=== PATIENT | male | born 1950 | race Caucasian/White ===

== ENCOUNTER 2017-11-08 19:16 | Emergency (ER) | payer MEDICARE, MEDICAID ==
[~2017-11-08] VITALS: Ht 198.1 cm; Wt 129.5 kg
[~2017-11-08 19:16] MED LIST: ALBUTEROL SULFAT3 M3 IH; ASPIRIN 32325 MG/TAB PO; CELEBREX 200MG200 MG PO; CIPRO 500MG TA500 MG PO; ELAVIL150 MG PO; ELAVIL50 MG PO; NORCO 325 MG-101 TAB PO; NORCO 325 MG-7.1 TAB PO; PROAIR HFA0.09 MG/AC IH
[2017-11-08 19:50] VITALS: BP 128/77; TEMP 99.1
[2017-11-08 20:02] LABS: BASO # 0.1 (0.0-0.2); BASO % 0.5 % (0.0-2.0); EOS # 0.3 (0.0-0.7); GRAN # 7.9 (1.4-6.5); GRAN % 69.7 % (42.2-75.2); HEMATOCRIT 40.4 % (42.0-52.0); HEMOGLOBIN 13.5 g/dl (13.5-18.0); LYMPH # 2.4 (1.2-3.4); LYMPH % 21.4 % (20.0-51.0); MEAN CELL VOLUME 91 fl (80.0-100.0); MEAN CORPUSCULAR HEMOGLOBIN 31 pg (27.0-31.0); MEAN CORPUSCULAR HGB CONC 33 g/dl (33.0-37.0); MEAN PLATELET VOLUME 8.6 fl (7.4-10.4); MONO # 0.6 (0.1-0.6); MONO % 5.2 % (1.7-9.3); PLATELET COUNT 237 K/mm3 (130-400); RED BLOOD COUNT 4.43 M/mm3 (4.20-5.60)
[2017-11-08 20:09] LABS: COLLECTION METHOD CLEAN CATCH
[2017-11-08 20:18] LABS: MUCOUS Present /lpf; PH 5 (5-8); URINE APPEARANCE Hazy; URINE BACTERIA None Seen /hpf; URINE BILIRUBIN Negative (NEGATIVE); URINE BLOOD Negative (NEGATIVE); URINE COLOR Amber; URINE GLUCOSE Negative (NEGATIVE); URINE KETONE Trace (NEGATIVE); URINE LEUKOCYTE ESTERASE 1+ (NEGATIVE); URINE NITRATE Negative (NEGATIVE); URINE PROTEIN(semi-quant) Negative (NEGATIVE); URINE UROBILINOGEN >=4.0 mg/dL (NEGATIVE)
[2017-11-08 20:26] LABS: ALANINE AMINOTRANSFERASE 25 U/L (21-72); ALBUMIN 3.7 gm/dL (3.5-5.0); ALKALINE PHOSPHATASE 101 U/L (50-136); ANION GAP 12 mmol/L (7-16); AST,SGOT 23 U/L (15-37); BILIRUBIN,TOTAL 0.9 mg/dL (0.0-1.0); BLOOD UREA NITROGEN 11 mg/dL (9-20); CARBON DIOXIDE 27 mmol/L (22-30); CHLORIDE 106 mmol/L (98-107); CREATININE, serum 1.08 mg/dL (0.66-1.25); GLUCOSE 99 mg/dL (74-106); POTASSIUM 3.6 mmol/L (3.4-5.0); SODIUM 144 mmol/L (137-145); TOTAL PROTEIN 7.1 gm/dL (6.4-8.2)
[2017-11-08 20:27] LABS: ALCOHOL(ethanol),MEDICAL < 10 mg/dL
[2017-11-08 20:28] LABS: TRICYCLIC ANTIDEPRESS URINE POSITIVE
[2017-11-08] MEDS ORDERED: CIPRO 500MG TA500 MG PO (20:34)
[2017-11-08 20:45] VITALS: PULSE 94
== END 2017-11-08 20:42 | disposition home or self-care (01) ==
LOC: COL.ER 19:16
PROVIDERS: Family Medicine
DX: F29 Unspecified psychosis not due to a substance or known physiological condition (principal); F20.9 Schizophrenia, unspecified; N39.0 Urinary tract infection, site not specified; F15.90 Other stimulant use, unspecified, uncomplicated; Z87.891 Personal history of nicotine dependence

== ENCOUNTER 2018-05-17 21:26 | Inpatient (IN) | payer MEDICARE, MEDICAID ==
[~2018-05-17] VITALS: Wt 129.4 kg
[~2018-05-17 21:26] MED LIST changes: +CEPHALEXIN500 M1 PO
[2018-05-17 23:02] LABS: BASO % 0.3 % (0.0-2.0); EOS % 0.1 % (0-4.0); GRAN # 12.9 (1.4-6.5); GRAN % 82.8 % (42.2-75.2); HEMATOCRIT 49.3 % (42.0-52.0); HEMOGLOBIN 16.5 g/dl (13.5-18.0); LYMPH # 1.6 (1.2-3.4); LYMPH % 10.2 % (20.0-51.0); MEAN CELL VOLUME 93 fl (80.0-100.0); MEAN CORPUSCULAR HEMOGLOBIN 31 pg (27.0-31.0); MEAN CORPUSCULAR HGB CONC 34 g/dl (33.0-37.0); MEAN PLATELET VOLUME 10.9 fl (7.4-10.4); MONO % 6.3 % (1.7-9.3); PLATELET COUNT 115 K/mm3 (130-400); RED BLOOD COUNT 5.33 M/mm3 (4.20-5.60); REDCELL DISTRIBUTION WIDTH-CV 13.3 % (11.5-14.5)
[2018-05-17 23:10] LABS: ALBUMIN 3.8 gm/dL (3.5-5.0); BILIRUBIN,TOTAL 1.1 mg/dL (0.0-1.0); CALCIUM 8.3 mg/dL (8.4-10.2); CREATININE, serum 1.27 mg/dL (0.66-1.25); POTASSIUM 4.8 mmol/L (3.4-5.0); TOTAL PROTEIN 6.9 gm/dL (6.4-8.2)
[2018-05-17 23:16] LABS: PROTHROMBIN TIME 11.9 SECONDS (9.7-12.8)
[2018-05-17 23:54] LABS: COLLECTION METHOD CATHETER
[2018-05-18] VITALS (170 sets, daily range): BP systolic 100–146; BP diastolic 58–83; PULSE 83–99; TEMP 97.7–98.6; O2SAT 79–100
[2018-05-18 00:06] LABS: HYALINE CAST >12 /lpf; MUCOUS Present /lpf; PH 5 (5-8); SQUAMOUS EPITHELIAL 0-2 /hpf; URINE APPEARANCE Hazy; URINE BACTERIA Rare /hpf; URINE BILIRUBIN Negative (NEGATIVE); URINE BLOOD 2+ (NEGATIVE); URINE COLOR Amber; URINE GLUCOSE Negative (NEGATIVE); URINE KETONE 1+ (NEGATIVE); URINE LEUKOCYTE ESTERASE Negative (NEGATIVE); URINE NITRATE Negative (NEGATIVE); URINE PROTEIN(semi-quant) 2+ (NEGATIVE); URINE RBC 0-2 /hpf
[2018-05-18 00:15] LABS: TRICYCLIC ANTIDEPRESS URINE POSITIVE
[2018-05-18 02:41] LABS: TROPONIN-I < 0.012 ng/mL (0.000-0.034)
[2018-05-18 04:15] LABS: BASO % 0.3 % (0.0-2.0); EOS % 0.1 % (0-4.0); GRAN # 11.8 (1.4-6.5); GRAN % 82.3 % (42.2-75.2); LYMPH # 1.6 (1.2-3.4); LYMPH % 10.9 % (20.0-51.0); MEAN CELL VOLUME 94 fl (80.0-100.0); MEAN CORPUSCULAR HEMOGLOBIN 31 pg (27.0-31.0); MEAN CORPUSCULAR HGB CONC 34 g/dl (33.0-37.0); MEAN PLATELET VOLUME 9.4 fl (7.4-10.4); MONO # 0.9 (0.1-0.6); PLATELET COUNT 177 K/mm3 (130-400); RED BLOOD COUNT 4.59 M/mm3 (4.20-5.60); REDCELL DISTRIBUTION WIDTH-CV 13.2 % (11.5-14.5)
[2018-05-18 04:18] LABS: HEMOGLOBIN 14.4 g/dl (13.5-18.0)
[2018-05-18 04:25] LABS: ALCOHOL(ethanol),MEDICAL < 10 mg/dL; ANION GAP 7 mmol/L (7-16); BLOOD UREA NITROGEN 28 mg/dL (9-20); CALCIUM 8.2 mg/dL (8.4-10.2); CARBON DIOXIDE 25 mmol/L (22-30); CHLORIDE 108 mmol/L (98-107); CREATININE, serum 1.22 mg/dL (0.66-1.25); GLUCOSE 123 mg/dL (74-106); PHOSPHOROUS 3.6 mg/dL (2.5-4.5); POTASSIUM 4.5 mmol/L (3.4-5.0); SODIUM 140 mmol/L (137-145)
[2018-05-18 04:29] LABS: ARTERIAL BLD GAS O2 SATURATION 91.4 % (92-100); ARTERIAL BLD GAS TCO2 CT 23.1; ARTERIAL BLOOD GAS BASE EXCESS -2.6 (-2-2); ARTERIAL BLOOD GAS PCO2 37.7 mmHg (35-45); ARTERIAL BLOOD GAS PO2 59.9 mmHg (80-100); ARTERIAL BLOOD GAS pH 7.38 (7.35-7.45)
[2018-05-18 05:11] LABS: CREATINE KINASE 7930 U/L (55-170)
[2018-05-18 05:17] LABS: AMMONIA 31 umol/L (11-35)
[2018-05-18 09:36] LABS: CALCIUM 7.9 mg/dL (8.4-10.2); CREATININE, serum 1.13 mg/dL (0.66-1.25); POTASSIUM 4.4 mmol/L (3.4-5.0)
[2018-05-18 09:38] LABS: BASO # 0.1 (0.0-0.2); BASO % 0.5 % (0.0-2.0); EOS # 0.1 (0.0-0.7); EOS % 0.8 % (0-4.0); GRAN # 9.5 (1.4-6.5); GRAN % 77.2 % (42.2-75.2); HEMATOCRIT 41.1 % (42.0-52.0); HEMOGLOBIN 13.6 g/dl (13.5-18.0); LYMPH # 1.7 (1.2-3.4); LYMPH % 13.5 % (20.0-51.0); MEAN CELL VOLUME 93 fl (80.0-100.0); MEAN CORPUSCULAR HEMOGLOBIN 31 pg (27.0-31.0); MEAN CORPUSCULAR HGB CONC 33 g/dl (33.0-37.0); MEAN PLATELET VOLUME 9.3 fl (7.4-10.4); MONO % 7.7 % (1.7-9.3); PLATELET COUNT 178 K/mm3 (130-400); RED BLOOD COUNT 4.42 M/mm3 (4.20-5.60); REDCELL DISTRIBUTION WIDTH-CV 13.3 % (11.5-14.5)
[2018-05-18] MEDS ORDERED: PRINIVIL2.5 MG PO (14:49)
[2018-05-18 16:29] LABS: FOLATE (FOLIC ACID) 5.6 ng/mL (7.0-31.4)
[2018-05-19] VITALS: BP 127/64; PULSE 86; TEMP 97.8
[2018-05-19 04:00] VITALS: BP 106/76; PULSE 81; TEMP 97.8
[2018-05-19 06:46] LABS: BASO % 0.3 % (0.0-2.0); EOS # 0.4 (0.0-0.7); EOS % 4.6 % (0-4.0); GRAN # 5.8 (1.4-6.5); GRAN % 67.5 % (42.2-75.2); HEMATOCRIT 39.8 % (42.0-52.0); HEMOGLOBIN 13.1 g/dl (13.5-18.0); LYMPH # 1.9 (1.2-3.4); LYMPH % 22.3 % (20.0-51.0); MEAN CELL VOLUME 95 fl (80.0-100.0); MEAN CORPUSCULAR HEMOGLOBIN 31 pg (27.0-31.0); MEAN CORPUSCULAR HGB CONC 33 g/dl (33.0-37.0); MEAN PLATELET VOLUME 9.4 fl (7.4-10.4); MONO # 0.4 (0.1-0.6); PLATELET COUNT 161 K/mm3 (130-400); RED BLOOD COUNT 4.21 M/mm3 (4.20-5.60); REDCELL DISTRIBUTION WIDTH-CV 13.4 % (11.5-14.5)
[2018-05-19 07:05] LABS: CALCIUM 7.9 mg/dL (8.4-10.2); CREATININE, serum 1.06 mg/dL (0.66-1.25); POTASSIUM 4.1 mmol/L (3.4-5.0)
[2018-05-19 08:00] VITALS: BP 138/77; PULSE 81; TEMP 97.9
[2018-05-19 12:02] VITALS: BP 143/70; PULSE 84; TEMP 97.6
[2018-05-19 12:22] LABS: GLUCOSE,CSF 80 mg/dL (40-70)
[2018-05-19 12:48] LABS: CSF APPEARANCE CLEAR; CSF COLOR COLORLESS
[2018-05-19 12:52] LABS: CSF RBC 11 /mm3 (0-0)
[2018-05-19 13:25] LABS: CSF POLYMORPHONUCLEAR 10 % (0-6)
[2018-05-19 13:26] LABS: CSF MONONUCLEAR 90 % (70-100)
[2018-05-19 16:00] VITALS: BP 139/69; PULSE 87; TEMP 99
[2018-05-19 19:57] VITALS: BP 158/76; PULSE 86; TEMP 97.8
[2018-05-20 00:15] VITALS: BP 130/32; PULSE 80; TEMP 98.2
[2018-05-20 04:10] VITALS: BP 122/66; PULSE 72
[2018-05-20 04:38] VITALS: TEMP 98
[2018-05-20 11:58] VITALS: BP 154/77; PULSE 72; TEMP 98
[2018-05-20 16:00] VITALS: BP 119/82; PULSE 89; TEMP 98.1
[2018-05-20 20:00] VITALS: BP 107/93; PULSE 91
[2018-05-21 01:05] VITALS: BP 126/74; PULSE 76; TEMP 98.2
[2018-05-21 07:51] VITALS: BP 100/55; PULSE 77; TEMP 98.7
[2018-05-21 08:43] LABS: BASO % 0.4 % (0.0-2.0); EOS # 0.9 (0.0-0.7); EOS % 11.8 % (0-4.0); GRAN # 4.6 (1.4-6.5); GRAN % 60.2 % (42.2-75.2); HEMATOCRIT 38.9 % (42.0-52.0); HEMOGLOBIN 12.9 g/dl (13.5-18.0); LYMPH # 1.6 (1.2-3.4); LYMPH % 21.2 % (20.0-51.0); MEAN CELL VOLUME 93 fl (80.0-100.0); MEAN CORPUSCULAR HEMOGLOBIN 31 pg (27.0-31.0); MEAN CORPUSCULAR HGB CONC 33 g/dl (33.0-37.0); MEAN PLATELET VOLUME 9.1 fl (7.4-10.4); MONO # 0.5 (0.1-0.6); PLATELET COUNT 204 K/mm3 (130-400); RED BLOOD COUNT 4.18 M/mm3 (4.20-5.60); REDCELL DISTRIBUTION WIDTH-CV 13.1 % (11.5-14.5)
[2018-05-21 08:54] LABS: BILIRUBIN,TOTAL 0.5 mg/dL (0.0-1.0); CALCIUM 8.4 mg/dL (8.4-10.2); CREATININE, serum 1.1 mg/dL (0.66-1.25); POTASSIUM 4.1 mmol/L (3.4-5.0); TOTAL PROTEIN 5.8 gm/dL (6.4-8.2)
[2018-05-21 11:19] VITALS: BP 111/62; PULSE 97; TEMP 98.1
[2018-05-21] MEDS ORDERED: OMNICEF 300MG300 MG PO (12:31)
[2018-05-21] MEDS ORDERED: NORCO 325 MG-51 TAB PO (12:32)
[2018-05-21 13:29] VITALS: BP 111/62; PULSE 97; TEMP 98.1
[2018-05-22 22:38] LABS: CYTOMEGALOVIRUS PCR Negative (Negative)
== END 2018-05-21 14:53 | DRG 557 ==
LOC: COL.ER 21:26 → ICU 05-18 01:18 → MEDICAL 05-20 21:28
PROVIDERS: Emergency Medicine; Hospitalist; Nurse Practitioner Family; Physician Assistant; Psychiatry & Neurology Neurology; Student in an Organized Health Care Education/Training Program
PROC: 009U3ZX Drainage of Spinal Canal, Percutaneous Approach, Diagnostic (ICD-10-PCS; principal; 2018-05-19)
PROC: B01B1ZZ Fluoroscopy of Spinal Cord using Low Osmolar Contrast (ICD-10-PCS; 2018-05-19)
DX: M62.82 Rhabdomyolysis (principal); J18.9 Pneumonia, unspecified organism; N17.9 Acute kidney failure, unspecified; J45.909 Unspecified asthma, uncomplicated; F17.210 Nicotine dependence, cigarettes, uncomplicated; D69.6 Thrombocytopenia, unspecified; L85.3 Xerosis cutis; L89.329 Pressure ulcer of left buttock, unspecified stage; L89.159 Pressure ulcer of sacral region, unspecified stage; F15.10 Other stimulant abuse, uncomplicated
CPT/HCPCS: 99223-AI; 99233-AI; 99239; A4216; A9585; C9113; J0456; J0696; J2060; J7030; J7050

== ENCOUNTER 2018-05-21 14:05 | Inpatient (IN) | payer MEDICARE, MEDICAID ==
[~2018-05-21] VITALS: Ht 200.7 cm; Wt 128.3 kg
[~2018-05-21 14:05] MED LIST changes: +NORCO 325 MG-51 TAB PO; +OMNICEF 300MG300 MG PO; +PRINIVIL2.5 MG PO
[2018-05-21 15:51] VITALS: BP 126/68; PULSE 102; TEMP 98.7
[2018-05-21 15:57] VITALS: BP 126/68; PULSE 102; TEMP 98.7
[2018-05-21 18:41] VITALS: BP 126/68; PULSE 100; TEMP 98.6
[2018-05-22 05:47] VITALS: BP 118/63; PULSE 82; TEMP 97.8
[2018-05-22 18:02] VITALS: BP 125/73; PULSE 73; TEMP 98
[2018-05-23 04:29] VITALS: BP 100/53; PULSE 77; TEMP 97.8
[2018-05-23 16:19] VITALS: BP 121/56; PULSE 84; TEMP 98.2
[2018-05-24 03:53] VITALS: BP 120/51; PULSE 64; TEMP 97.7
[2018-05-24 08:52] LABS: HEMATOCRIT 44.2 % (42.0-52.0); HEMOGLOBIN 14.8 g/dl (13.5-18.0); MEAN CELL VOLUME 93 fl (80.0-100.0); MEAN CORPUSCULAR HEMOGLOBIN 31 pg (27.0-31.0); MEAN CORPUSCULAR HGB CONC 34 g/dl (33.0-37.0); MEAN PLATELET VOLUME 8.9 fl (7.4-10.4); PLATELET COUNT 250 K/mm3 (130-400); RED BLOOD COUNT 4.73 M/mm3 (4.20-5.60); REDCELL DISTRIBUTION WIDTH-CV 12.8 % (11.5-14.5)
[2018-05-24 09:02] LABS: BAND 3 % (0-10); EOSINOPHIL 8 % (0-4); LYMPHOCYTE 28 % (20.0-51.0); NEUTROPHILS 57 % (42.0-75.2); PLATELET ESTIMATE NORMAL (NORMAL)
[2018-05-24 09:05] LABS: ALBUMIN 3.9 gm/dL (3.5-5.0); BILIRUBIN,TOTAL 0.8 mg/dL (0.0-1.0); CALCIUM 8.8 mg/dL (8.4-10.2); CREATININE, serum 1.11 mg/dL (0.66-1.25); MAGNESIUM 2.2 mg/dL (1.6-2.3); POTASSIUM 4.3 mmol/L (3.4-5.0); TOTAL PROTEIN 7.1 gm/dL (6.4-8.2)
[2018-05-24 11:52] LABS: TRICYCLIC ANTIDEPRESS URINE POSITIVE
[2018-05-24 15:16] VITALS: BP 123/68; PULSE 90; TEMP 98
[2018-05-25 06:10] VITALS: BP 107/66; PULSE 85; TEMP 98.2
[2018-05-25 16:47] VITALS: BP 136/61; PULSE 89; TEMP 98
[2018-05-26 06:20] VITALS: BP 106/56; PULSE 71; TEMP 98.1
[2018-05-26 15:46] VITALS: BP 140/85; PULSE 93; TEMP 98.6
[2018-05-27 05:37] VITALS: BP 123/65; PULSE 72; TEMP 98
[2018-05-27 16:30] VITALS: BP 143/71; PULSE 90; TEMP 98.2
[2018-05-28 04:32] VITALS: BP 118/54; PULSE 63; TEMP 97.5
[2018-05-28 17:23] VITALS: BP 121/69; PULSE 96; TEMP 97.7
[2018-05-29 06:34] VITALS: BP 123/58; PULSE 68; TEMP 98.4
[2018-05-29] MEDS ORDERED: AQUAPHOR OINTM396 GM TP (07:22)
[2018-05-29] MEDS ORDERED: TYLENOL 325MG325 MG PO (07:22)
[2018-05-29] MEDS ORDERED: PROAIR HFA0.09 MG/AC IH (07:23)
[2018-05-29] MEDS ORDERED: PREDNISONE20 MG PO (07:26)
[2018-05-29] MEDS ORDERED: LEVAQUIN 750MG750 M1 PO (07:28)
== END 2018-05-29 11:20 | disposition home or self-care (01) | DRG 947 ==
PROVIDERS: Internal Medicine
DX: R53.81 Other malaise (principal); J18.9 Pneumonia, unspecified organism; M62.82 Rhabdomyolysis; N17.9 Acute kidney failure, unspecified; M62.59 Muscle wasting and atrophy, not elsewhere classified, multiple sites; L89.159 Pressure ulcer of sacral region, unspecified stage; L89.329 Pressure ulcer of left buttock, unspecified stage; F15.10 Other stimulant abuse, uncomplicated; J45.909 Unspecified asthma, uncomplicated; D69.6 Thrombocytopenia, unspecified; L85.3 Xerosis cutis; E88.9 Metabolic disorder, unspecified
CPT/HCPCS: 99222-AI; 99232-AI; 99239; A9284; J1650; J1815; J7512

== ENCOUNTER 2019-03-22 23:11 | Inpatient (IN) | payer MEDICARE, OTHER ==
[~2019-03-22] VITALS: Ht 198.1 cm; Wt 125.0 kg
[~2019-03-22 23:11] MED LIST changes: +AQUAPHOR OINTM396 GM TP; +LEVAQUIN 750MG750 M1 PO; +PREDNISONE20 MG PO; +TYLENOL 325MG325 MG PO
[2019-03-22] MEDS ORDERED: AMITRIPTYLINE H25 M1 PO (23:38)
[2019-03-22] MEDS ORDERED: NORCO 325 MG-51 TAB PO (23:39)
[2019-03-23] VITALS (8 sets, daily range): BP systolic 96–127; BP diastolic 56–66; PULSE 64–77; TEMP 97.2–98.8
[2019-03-23 00:21] LABS: COLLECTION METHOD CLEAN CATCH
[2019-03-23 00:26] LABS: BASO # 0.1 (0.0-0.2); BASO % 0.3 % (0.0-2.0); GRAN # 18.9 (1.4-6.5); GRAN % 83.7 % (42.2-75.2); HEMATOCRIT 44.2 % (42.0-52.0); LYMPH # 2.3 (1.2-3.4); LYMPH % 10.2 % (20.0-51.0); MEAN CELL VOLUME 93 fl (80.0-100.0); MEAN CORPUSCULAR HEMOGLOBIN 32 pg (27.0-31.0); MEAN CORPUSCULAR HGB CONC 34 g/dl (33.0-37.0); MEAN PLATELET VOLUME 9.3 fl (7.4-10.4); MONO # 1.1 (0.1-0.6); PLATELET COUNT 201 K/mm3 (130-400); RED BLOOD COUNT 4.74 M/mm3 (4.20-5.60); REDCELL DISTRIBUTION WIDTH-CV 13.8 % (11.5-14.5)
[2019-03-23 00:33] LABS: ALBUMIN 4.4 gm/dL (3.5-5.0); BILIRUBIN,TOTAL 1.9 mg/dL (0.0-1.0); CALCIUM 9.3 mg/dL (8.4-10.2); CREATININE, serum 1.7 (0.66-1.25); MAGNESIUM 2.2 mg/dL (1.6-2.3); POTASSIUM 4.4 mmol/L (3.4-5.0); TOTAL PROTEIN 7.7 gm/dL (6.4-8.2)
[2019-03-23 01:20] LABS: HYALINE CAST >12 /lpf; MUCOUS Present /lpf; PH 5 (5-8); URINE APPEARANCE Turbid; URINE BACTERIA None Seen /hpf; URINE BILIRUBIN Positive (NEGATIVE); URINE BLOOD 1+ (NEGATIVE); URINE COLOR Amber; URINE GLUCOSE Negative (NEGATIVE); URINE KETONE Trace (NEGATIVE); URINE LEUKOCYTE ESTERASE 2+ (NEGATIVE); URINE NITRATE Negative (NEGATIVE); URINE PROTEIN(semi-quant) 2+ (NEGATIVE); URINE RBC 20-50 /hpf; URINE UROBILINOGEN >=4.0 mg/dL (NEGATIVE)
[2019-03-23 03:31] LABS: INR 1.1 (0.8-3.0); PROTHROMBIN TIME 13.3 SECONDS (9.7-12.8)
[2019-03-23 03:34] LABS: PARTIAL THROMBOPLASTIN TIME 30.7 SECONDS (26.0-37.0)
[2019-03-23 03:35] LABS: PHOSPHOROUS 3.2 mg/dL (2.5-4.5)
[2019-03-23 03:37] LABS: ALCOHOL(ethanol),MEDICAL < 10 mg/dL
[2019-03-23 03:45] LABS: TRICYCLIC ANTIDEPRESS URINE POSITIVE
[2019-03-23 03:54] LABS: TROPONIN-I < 0.012 ng/mL (0.000-0.035)
--- NOTE | 2019-03-23 05:30 | NUR ---
Admitted to medical floor from ER with DX; weakness, rhabdo, UTI, did have dose of Rocephin IV in ER, Awake, requesting some food- sandwich given. IV fluids of NS at 150cc/hr, Tele on, Incontinent of urine and stool- personal care given- did also void 250cc dk zafar urine in urinal. Pt is alert/ oriented to person, month, knows he is in a hospital- doesnt know the name- does not know the year-- answers most questions appropriately- states hes been falling alot at home- lives alone. Has various bruises to head- arms, right hip- has abrasions to right toes, also scabs all over lower legs and left toes- does have open area to left buttock- linear 1.5 cm long,, bed alarm on-fall precautions.
[2019-03-23 06:49] LABS: BASO # 0.1 (0.0-0.2); BASO % 0.3 % (0.0-2.0); EOS # 0.1 (0.0-0.7); EOS % 0.3 % (0-4.0); GRAN # 13.7 (1.4-6.5); HEMATOCRIT 41.5 % (42.0-52.0); HEMOGLOBIN 13.6 g/dl (13.5-18.0); LYMPH # 2.7 (1.2-3.4); LYMPH % 15.5 % (20.0-51.0); MEAN CELL VOLUME 96 fl (80.0-100.0); MEAN CORPUSCULAR HEMOGLOBIN 31 pg (27.0-31.0); MEAN CORPUSCULAR HGB CONC 33 g/dl (33.0-37.0); MEAN PLATELET VOLUME 9.2 fl (7.4-10.4); MONO # 0.9 (0.1-0.6); MONO % 5.2 % (1.7-9.3); PLATELET COUNT 165 K/mm3 (130-400); RED BLOOD COUNT 4.34 M/mm3 (4.20-5.60); REDCELL DISTRIBUTION WIDTH-CV 13.9 % (11.5-14.5)
[2019-03-23 07:03] LABS: ALBUMIN 3.5 gm/dL (3.5-5.0); BILIRUBIN,TOTAL 1.2 mg/dL (0.0-1.0); CALCIUM 8.4 mg/dL (8.4-10.2); CREATININE, serum 1.53 (0.66-1.25); POTASSIUM 3.9 mmol/L (3.4-5.0); TOTAL PROTEIN 6.3 gm/dL (6.4-8.2)
--- NOTE | 2019-03-23 09:05 | NUR ---
PATIENT ASSESSMENT COMPLETED. HE ARROUSES EASILY TO VERBAL STIMULI. HE DENIES NEEDS OR QUESTIONS AT THIS TIME.
--- NOTE | 2019-03-23 17:45 | NUR ---
PATIENT COMPLAINS OF PAIN. I HAVE CALLED DR. GARCIA AND ORDER WAS OBTAINED. 1 TAB NORCO PROVIDED.
--- NOTE | 2019-03-23 18:30 | NUR ---
PATIENT UP IN BED WATCHING TELEVISION. HE DENIES OTHER NEEDS AT THIS TIME
[2019-03-24 03:40] VITALS: BP 129/49; PULSE 62
[2019-03-24 06:34] LABS: BASO % 0.3 % (0.0-2.0); EOS # 0.4 (0.0-0.7); EOS % 3.9 % (0-4.0); GRAN # 6.4 (1.4-6.5); GRAN % 68.8 % (42.2-75.2); HEMATOCRIT 41.1 % (42.0-52.0); HEMOGLOBIN 13.4 g/dl (13.5-18.0); LYMPH % 21.6 % (20.0-51.0); MEAN CELL VOLUME 97 fl (80.0-100.0); MEAN CORPUSCULAR HEMOGLOBIN 32 pg (27.0-31.0); MEAN CORPUSCULAR HGB CONC 33 g/dl (33.0-37.0); MEAN PLATELET VOLUME 9.4 fl (7.4-10.4); MONO # 0.5 (0.1-0.6); PLATELET COUNT 184 K/mm3 (130-400); RED BLOOD COUNT 4.25 M/mm3 (4.20-5.60)
[2019-03-24 07:16] LABS: BILIRUBIN,TOTAL 0.4 mg/dL (0.0-1.0); CALCIUM 8.1 mg/dL (8.4-10.2); CREATININE, serum 1.31 (0.66-1.25); TOTAL PROTEIN 5.8 gm/dL (6.4-8.2)
[2019-03-24 07:24] VITALS: BP 117/78; PULSE 63; TEMP 97.6
--- NOTE | 2019-03-24 10:30 | NUR ---
Assessment completed, alert/oriented, vital signs stable, patient reports mild shoulder/back pain at this time which is a chronic pain for him, heart RRR/distal pulses are palpable, lungs CTA/ no resp.difficulty noted, PT/OT working with him and he is doing fairly well, he feels he is ready to go home and does not wish to pursue any outpatient thearpies or home health services, creatnine improved, WBC improved, CT head negative, patient does have a samll open ulcer to his coccyx/ encourage off loading as much as possible and he verbalized understanding, patient toes bilaterally are covered with abrasions and scabs/ he reports being barefoot alot, he denies needs or concerns, will continue to monitor
--- NOTE | 2019-03-24 11:16 | NUR ---
Initial visit; Patient thanked [facility] [employer] for stopping by and states he is getting better every day and is being well taken care of here at our hospital.
[2019-03-24 12:34] VITALS: BP 129/63; PULSE 64; TEMP 97.6
--- NOTE | 2019-03-24 14:33 | NUR ---
SW met with the patient to discuss a discharge plan. The patient lives alone in [place]. The patient has a cane and a walker and reports independence with ADLs. The patient reports he has had home health services in the past but states "They are not for me," and is not interested in hh services. The patient's PCP is Dr. Peñaloza and pt receives medications from [facility] in [place] with no difficulties. The patient does not have advanced directives in the EMR but reports they are completed and designate his friends Luis A or Janelle. The patient plans to return home upon discharge with Luis A or Janelle providing transportation. There are no additional needs at this time.
[2019-03-24 17:00] VITALS: BP 145/60; PULSE 69; TEMP 97.5
[2019-03-24 20:28] VITALS: BP 150/75; PULSE 85; TEMP 98.2
[2019-03-24 23:22] VITALS: BP 119/56; PULSE 69; TEMP 98.1
--- NOTE | 2019-03-25 01:36 | NUR ---
PT RESTING IN BED WITH EYES CLOSED. CALL LIGHT WITHIN REACH.
[2019-03-25 04:25] VITALS: BP 102/41; PULSE 63; TEMP 97.8
[2019-03-25 07:08] LABS: BASO % 0.6 % (0.0-2.0); EOS # 0.5 (0.0-0.7); EOS % 6.3 % (0-4.0); GRAN # 4.4 (1.4-6.5); GRAN % 61.6 % (42.2-75.2); HEMOGLOBIN 13.6 g/dl (13.5-18.0); LYMPH # 1.8 (1.2-3.4); LYMPH % 25.2 % (20.0-51.0); MEAN CELL VOLUME 96 fl (80.0-100.0); MEAN CORPUSCULAR HEMOGLOBIN 31 pg (27.0-31.0); MEAN CORPUSCULAR HGB CONC 32 g/dl (33.0-37.0); MEAN PLATELET VOLUME 9.4 fl (7.4-10.4); MONO # 0.4 (0.1-0.6); PLATELET COUNT 221 K/mm3 (130-400); REDCELL DISTRIBUTION WIDTH-CV 13.6 % (11.5-14.5)
[2019-03-25 07:13] LABS: CALCIUM 8.5 mg/dL (8.4-10.2); CREATININE, serum 1.11 (0.66-1.25)
[2019-03-25 08:16] VITALS: BP 114/43; PULSE 63; TEMP 98.3
--- NOTE | 2019-03-25 09:30 | NUR ---
Assessment completed, alert/oriented, vital signs stable, patient reports some mild-moderate shoulder/neck/back pain that is chronic in natures, denies needs for intervention for pain at this time, patient condition is improving steadily and orginally he was wanting to go home and be discharged today, he has changed his mind overnight and feels it would be best for him to have some outpatient PT/OT to get stronger, heart RRR, distal pulses are palpable, he is taking in PO fluid well and urine is looking more clear, creat improved, still on IV abx, plans for SNF and IPR referral, he is working with PT in his room at [facility]
--- NOTE | 2019-03-25 10:05 | NUR ---
SW's attended clinical rounds. The patient reports that he would be interested in post-acute rehab now upon discharge. SW's then followed up with the patient to discuss post-acute rehab options and to present and explain the Patient Choice Form. The patient preferred 1) [facility] 2) [facility] or [facility] 3) [facility]. Patient Choice Form signed by the patient and he was provided a copy. RAQUEL consulted [facility] Director, Ermelinda. RAQUEL contacted and faxed a referral to the other three facilites. Aby, at [facility], reports that they do not have any beds available at this time. [facility] reports that they do not have anyone at their facility at this time, to review the referral. SW awaiting [facility] and [facility]'s screen. SW to update the patient and will continue to follow.
--- NOTE | 2019-03-25 10:17 | NUR ---
Maral, at [facility], reports that they are unable to accept the patient. SW to inform the patient and will continue to follow.
[2019-03-25] MEDS ORDERED: ASPIRIN 81M81 MG/TA2 PO (10:23)
--- NOTE | 2019-03-25 11:32 | NUR ---
SW's met with the patient to update on referrals and to discuss other post-acute rehab options. The patient reports that he would be agreeable for RAQUEL to send referrals to [facility], [facility], [facility], and [facility]. RAQUEL contacted and faxed a referral to those facilities. SW awaiting their screens.
[2019-03-25 11:54] VITALS: BP 129/51; PULSE 58; TEMP 97.5
--- NOTE | 2019-03-25 13:57 | NUR ---
Tamar, at [facility], reports that they are unable to accept the patient. SW to inform the patient.
--- NOTE | 2019-03-25 15:50 | NUR ---
Irma, at [facility], reports that they are unable to accept the patient. SW to inform the patient.
--- NOTE | 2019-03-25 16:19 | NUR ---
Homero, at [facility], reports that they are able to accept the patient. SW to inform the patient. RAQUEL also consulted [employer] about a Medicaid application. Masoud, with [employer], reports that the patient did have Medicaid in the past. Masoud met with the patient and did a new Medicaid darlyn.
[2019-03-25 16:53] VITALS: BP 146/77; PULSE 46; TEMP 97.9
--- NOTE | 2019-03-25 18:40 | NUR ---
REPORT RECEIVED FROM RN, CARE OF PT ASSUMED AT THIS TIME. BEDSIDE ROUNDS COMPLETED, PT DENIES NEEDS.
[2019-03-25 19:50] VITALS: BP 126/67; PULSE 68; TEMP 97.9
--- NOTE | 2019-03-25 22:57 | NUR ---
PT AWAKE, ALERT, OX4 AND COOPERATIVE. INDEPENDENT IN ROOM WITHOUT ISSUES. REPORTS CHRONIC SHOULDER PAIN, TAKES NORCO PRN FOR SAME. DENIES PAIN, BURNING WITH URINATION. MULTIPLE ABRASIONS NOTED TO TOPS OF TOES ON BILAT FEET, STATES HE "SCRAPED THEM ON THE CONCRETE." NO ACTIVE DRAINAGE FROM AREA AT THIS TIME. CALL LIGHT WITHIN REACH.
[2019-03-25 23:41] VITALS: BP 113/46; PULSE 75; TEMP 97.8
--- NOTE | 2019-03-26 01:35 | NUR ---
PT RESTING IN BED WITH EYES CLOSED, NO DISTRESS NOTED. CALL LIGHT WITHIN REACH.
[2019-03-26 03:57] VITALS: BP 129/57; PULSE 57; TEMP 97.7
--- NOTE | 2019-03-26 04:12 | NUR ---
PT RESTING QUIETLY WITH EYES CLOSED. CALL LIGHT WITHIN REACH.
--- NOTE | 2019-03-26 06:19 | NUR ---
PT SLEEPING QUIETLY, NO DISTRESS NOTED. PT HAS REPORTED CHRONIC SHOULDER PAIN OCC THROUGH THE NIGHT, HAS DENIED NEED FOR PAIN MEDICATIONS, OTHER INTERVENTIONS. HAS RESTED WELL THROUGH THE NIGHT. CALL LIGHT WITHIN REACH.
--- NOTE | 2019-03-26 07:19 | NUR ---
REPORT GIVEN TO GARO SHULTZ AND DAKSHA RN; BEDSIDE ROUNDS COMPLETED. PT SLEEPING AT THIS TIME.
[2019-03-26] MEDS ORDERED: OMNICEF 300MG300 MG PO (07:52)
[2019-03-26 07:58] VITALS: BP 131/64; PULSE 62; TEMP 97.8
[2019-03-26] MEDS ORDERED: NORCO 325 MG-51 TAB PO (09:48)
--- NOTE | 2019-03-26 11:11 | NUR ---
Taking PO fluids well. Intermittent needle left hand flushes easily. Feet soaked and patient instructed to keep wounds clean, not picking at the scabs. Right toes scabbed more than the left. Complains of chronic shoulder, neck, and back pain, patient relates to arthritis. Small wound on right upper buttock surrounded by discolored scar tissue appears to be healing. Healed scars on low back and bilateral hips noted. Patient reports previous surgeries.
--- NOTE | 2019-03-26 11:46 | NUR ---
RAQUEL informed the patient of [facility]'s acceptance. The patient reports that he is agreeable to transfer there. The patient is to discharge today, 03/26, to [facility] for a skilled stay. Transportation was scheduled for 1300, via [email or web address]. RAQUEL informed the patient and the patient's nurse. RAQUEL presented and explained the IM form to the patient. The patient verbalized understanding, signed, and he was provided a copy. No additional needs at this time.
[2019-03-26 12:06] VITALS: BP 124/65; PULSE 75; TEMP 97.8
[2019-03-26 12:29] VITALS: BP 124/65; PULSE 75; TEMP 97.8
--- NOTE | 2019-03-26 12:51 | NUR ---
Report called to Antionette nurse at [facility] where patient is being discharged now. Patient in wheelchair and now leaving with [facility] transportation.
== END 2019-03-26 12:54 | DRG 872 ==
LOC: COL.ER 23:11 → MEDICAL 03-23 03:20
PROVIDERS: Emergency Medicine; Nurse Practitioner Family; Physician Assistant; ADMIT Internal Medicine
DX: A41.9 Sepsis, unspecified organism (principal); N17.9 Acute kidney failure, unspecified; N39.0 Urinary tract infection, site not specified; M62.82 Rhabdomyolysis; E86.0 Dehydration; F15.10 Other stimulant abuse, uncomplicated; J45.909 Unspecified asthma, uncomplicated; F17.210 Nicotine dependence, cigarettes, uncomplicated; Z96.643 Presence of artificial hip joint, bilateral; Z96.652 Presence of left artificial knee joint; E80.6 Other disorders of bilirubin metabolism; R73.9 Hyperglycemia, unspecified; B96.20 Unspecified Escherichia coli [E. coli] as the cause of diseases classified elsewhere; Z87.01 Personal history of pneumonia (recurrent)
CPT/HCPCS: 99222-AI; 99231-AI; 99232-AI; 99239; A4216; J0696; J1644; J7030

== ENCOUNTER → 2019-05-26 | Outpatient (CLI) | payer MEDICARE ==
[~2019-05-26] MED LIST changes: +ALBUTEROL0.83 MG/ML IH; +AMITRIPTYLINE H25 M1 PO; +ASPIRIN 81M81 MG/TA2 PO; +MAXIPIME2 GM IV; +PRINIVIL5 MG PO; +VENTOLIN0.09 MG IH
[2019-05-26 15:05] LABS: HEMATOCRIT 40.2 % (42.0-52.0); HEMOGLOBIN 12.9 g/dl (13.5-18.0); MEAN CELL VOLUME 96 fl (80.0-100.0); MEAN CORPUSCULAR HEMOGLOBIN 31 pg (27.0-31.0); MEAN CORPUSCULAR HGB CONC 32 g/dl (33.0-37.0); MEAN PLATELET VOLUME 9.3 fl (7.4-10.4); PLATELET COUNT 335 K/mm3 (130-400); REDCELL DISTRIBUTION WIDTH-CV 13.5 % (11.5-14.5)
[2019-05-26 15:11] LABS: ERYTHROCYTE SEDIMENTATION RATE 13 mm/hr (0-30)
[2019-05-26 15:14] LABS: ALBUMIN 3.9 gm/dL (3.5-5.0); BILIRUBIN,TOTAL 0.4 mg/dL (0.0-1.0); CALCIUM 9.1 mg/dL (8.4-10.2); CREATININE, serum 1.1 (0.66-1.25); POTASSIUM 4.6 mmol/L (3.4-5.0); TOTAL PROTEIN 7.2 gm/dL (6.4-8.2)
== END ==
LOC: ZCOL.LAB 14:50
PROVIDERS: Internal Medicine
DX: M86.171 Other acute osteomyelitis, right ankle and foot (principal)

== ENCOUNTER → 2019-06-03 | Outpatient (CLI) | payer MEDICARE ==
[2019-06-03 21:48] LABS: BASO # 0.1 (0.0-0.2); BASO % 1.3 % (0.0-2.0); EOS # 0.5 (0.0-0.7); EOS % 5.6 % (0-4.0); GRAN # 5.6 (1.4-6.5); GRAN % 62.7 % (42.2-75.2); HEMATOCRIT 40.1 % (42.0-52.0); HEMOGLOBIN 13.1 g/dl (13.5-18.0); LYMPH # 2.1 (1.2-3.4); LYMPH % 23.8 % (20.0-51.0); MEAN CELL VOLUME 95 fl (80.0-100.0); MEAN CORPUSCULAR HEMOGLOBIN 31 pg (27.0-31.0); MEAN CORPUSCULAR HGB CONC 33 g/dl (33.0-37.0); MEAN PLATELET VOLUME 9.8 fl (7.4-10.4); MONO # 0.6 (0.1-0.6); MONO % 6.3 % (1.7-9.3); PLATELET COUNT 261 K/mm3 (130-400); RED BLOOD COUNT 4.23 M/mm3 (4.20-5.60); REDCELL DISTRIBUTION WIDTH-CV 13.1 % (11.5-14.5)
[2019-06-03 21:56] LABS: ALBUMIN 4.1 gm/dL (3.5-5.0); BILIRUBIN,TOTAL 0.4 mg/dL (0.0-1.0); C-REACTIVE PROTEIN 1.3 mg/dL (0.0-0.9); CALCIUM 9.4 mg/dL (8.4-10.2); CREATININE, serum 1.17 (0.66-1.25); POTASSIUM 4.4 mmol/L (3.4-5.0); TOTAL PROTEIN 7.6 gm/dL (6.4-8.2)
[2019-06-03 22:28] LABS: ERYTHROCYTE SEDIMENTATION RATE 14 mm/hr (0-30)
== END ==
LOC: COL.LAB 19:47 → ZCOL.LAB 19:47
PROVIDERS: Family Medicine
DX: I10 Essential (primary) hypertension (principal); M86.171 Other acute osteomyelitis, right ankle and foot

== ENCOUNTER → 2019-06-23 | Outpatient (CLI) | payer MEDICARE | LOC: ZCOL.LAB 17:26 | DX: M86.071 Acute hematogenous osteomyelitis, right ankle and foot (principal) ==

== ENCOUNTER → 2020-01-19 | Outpatient (CLI) | payer MEDICARE | LOC: ZCOL.LAB 16:41 | DX: E11.621 Type 2 diabetes mellitus with foot ulcer (principal); L89.152 Pressure ulcer of sacral region, stage 2 ==

== ENCOUNTER → 2020-02-13 | Outpatient (CLI) | payer MEDICARE | LOC: ZCOL.LAB 16:05 | DX: E11.621 Type 2 diabetes mellitus with foot ulcer (principal); E11.69 Type 2 diabetes mellitus with other specified complication; E11.628 Type 2 diabetes mellitus with other skin complications; L97.519 Non-pressure chronic ulcer of other part of right foot with unspecified severity; M86.9 Osteomyelitis, unspecified; L03.115 Cellulitis of right lower limb ==

== ENCOUNTER 2020-04-02 15:53 | Emergency (ER) | payer MEDICARE ==
[~2020-04-02] VITALS: Ht 200.7 cm; Wt 121.4 kg
[2020-04-02 16:01] VITALS: BP 131/64; TEMP 98.4
[2020-04-02] MEDS ORDERED: DOXYCYCLINE HY100 MG PO (18:08)
[2020-04-02 19:57] VITALS: PULSE 78
== END 2020-04-02 18:40 | disposition home or self-care (01) ==
LOC: COL.ER 15:53
DX: E11.621 Type 2 diabetes mellitus with foot ulcer (principal); M54.5 Low back pain; G89.29 Other chronic pain; E11.42 Type 2 diabetes mellitus with diabetic polyneuropathy; F17.210 Nicotine dependence, cigarettes, uncomplicated; W01.0XXA Fall on same level from slipping, tripping and stumbling without subsequent striking against object, initial encounter; Y92.009 Unspecified place in unspecified non-institutional (private) residence as the place of occurrence of the external cause

== ENCOUNTER 2020-04-30 13:16 | Emergency (ER) | payer MEDICARE ==
[~2020-04-30] VITALS: Ht 200.7 cm; Wt 114.1 kg
[~2020-04-30 13:16] MED LIST changes: +DOXYCYCLINE HY100 MG PO
[2020-04-30 13:30] VITALS: TEMP 98.5
[2020-04-30 15:06] LABS: BASO # 0.1 (0.0-0.2); BASO % 0.6 % (0.0-2.0); EOS # 0.6 (0.0-0.7); EOS % 6.8 % (0-4.0); GRAN # 5.6 (1.4-6.5); GRAN % 60.1 % (42.2-75.2); HEMATOCRIT 41.8 % (42.0-52.0); HEMOGLOBIN 13.4 g/dl (13.5-18.0); LYMPH # 2.5 (1.2-3.4); LYMPH % 26.7 % (20.0-51.0); MEAN CELL VOLUME 98 fl (80.0-100.0); MEAN CORPUSCULAR HEMOGLOBIN 32 pg (27.0-31.0); MEAN CORPUSCULAR HGB CONC 32 g/dl (33.0-37.0); MEAN PLATELET VOLUME 9.3 fl (7.4-10.4); MONO # 0.5 (0.1-0.6); MONO % 5.6 % (1.7-9.3); PLATELET COUNT 225 K/mm3 (130-400); RED BLOOD COUNT 4.26 M/mm3 (4.20-5.60); REDCELL DISTRIBUTION WIDTH-CV 13.7 % (11.5-14.5)
[2020-04-30 15:10] LABS: PROTHROMBIN TIME 11.4 SECONDS (9.7-12.8)
[2020-04-30 15:39] LABS: ALANINE AMINOTRANSFERASE 13 U/L (4-49); ALBUMIN 4.1 gm/dL (3.5-5.0); ALCOHOL(ethanol),MEDICAL < 10 mg/dL; ALKALINE PHOSPHATASE 83 U/L (50-136); ANION GAP 7 mmol/L (7-16); AST,SGOT 23 U/L (15-37); BILIRUBIN,TOTAL 0.5 mg/dL (0.0-1.0); BLOOD UREA NITROGEN 13 mg/dL (9-20); C-REACTIVE PROTEIN 2.8 mg/dL (0.0-0.9); CALCIUM 8.9 mg/dL (8.4-10.2); CARBON DIOXIDE 26 mmol/L (22-30); CHLORIDE 107 mmol/L (98-107); CREATININE, serum 1.14 (0.66-1.25); GLUCOSE 130 mg/dL (74-106); POTASSIUM 4.4 mmol/L (3.4-5.0); SODIUM 141 mmol/L (137-145); TOTAL PROTEIN 7.2 gm/dL (6.4-8.2)
[2020-04-30 16:01] LABS: TROPONIN-I < 0.012 ng/mL (0.000-0.035)
[2020-04-30 16:50] LABS: COLLECTION METHOD CATHETER
[2020-04-30 16:56] LABS: MUCOUS Present /lpf; PH 5 (5-8); SQUAMOUS EPITHELIAL 0-2 /hpf; URINE APPEARANCE Hazy; URINE BACTERIA None Seen /hpf; URINE BILIRUBIN Negative (NEGATIVE); URINE BLOOD Negative (NEGATIVE); URINE COLOR Yellow; URINE GLUCOSE Negative (NEGATIVE); URINE KETONE Negative (NEGATIVE); URINE LEUKOCYTE ESTERASE Negative (NEGATIVE); URINE NITRATE Negative (NEGATIVE); URINE PROTEIN(semi-quant) Negative (NEGATIVE); URINE RBC 0-2 /hpf
[2020-04-30 17:13] LABS: TRICYCLIC ANTIDEPRESS URINE POSITIVE
[2020-04-30 17:46] VITALS: BP 127/86; PULSE 87
== END 2020-04-30 17:46 | disposition home or self-care (01) ==
LOC: COL.ER 13:16
PROVIDERS: Emergency Medicine
DX: R41.0 Disorientation, unspecified (principal); F03.90 Unspecified dementia, unspecified severity, without behavioral disturbance, psychotic disturbance, mood disturbance, and anxiety; F17.210 Nicotine dependence, cigarettes, uncomplicated
CPT/HCPCS: J2270; Q9967

== ENCOUNTER → 2020-07-30 | Outpatient (REF) | payer MEDICARE ==
[~2020-07-30] MED LIST changes: +ASPI325T6 PO; +CUBICIN 500MG500 MG IV; +GLUCOPHAGE500 MG/TAB PO; +MONODOX100 PO
== END ==
LOC: ZCOL.LAB 16:58
DX: E13.621 Other specified diabetes mellitus with foot ulcer (principal)

== ENCOUNTER 2020-09-20 14:48 | Emergency (ER) | payer MEDICARE ==
[~2020-09-20] VITALS: Ht 200.7 cm; Wt 114.5 kg
[2020-09-20 17:54] VITALS: BP 122/77; PULSE 87; TEMP 97.9
[2020-10-11] MEDS ORDERED: ZESTRIL 5MG5 MG PO (08:36)
== END 2020-09-20 17:54 | disposition home or self-care (01) ==
LOC: COL.ER 14:48
DX: M25.512 Pain in left shoulder (principal); E11.40 Type 2 diabetes mellitus with diabetic neuropathy, unspecified; Z79.82 Long term (current) use of aspirin; Z79.84 Long term (current) use of oral hypoglycemic drugs; Z79.891 Long term (current) use of opiate analgesic; Z98.890 Other specified postprocedural states; W01.198A Fall on same level from slipping, tripping and stumbling with subsequent striking against other object, initial encounter

== ENCOUNTER 2021-01-19 12:51 | Emergency (ER) | payer MEDICARE ==
[~2021-01-19] VITALS: Ht 188 cm; Wt 100.9 kg
[~2021-01-19 12:51] MED LIST changes: +ZESTRIL 5MG5 MG PO
[2021-01-19 13:01] VITALS: TEMP 97.9
[2021-01-19 13:24] LABS: BASO % 0.4 % (0.0-2.0); EOS # 0.5 (0.0-0.7); EOS % 5.3 % (0-4.0); GRAN % 64.8 % (42.2-75.2); HEMOGLOBIN 11.7 g/dl (13.5-18.0); LYMPH # 2.2 (1.2-3.4); LYMPH % 24.1 % (20.0-51.0); MEAN CELL VOLUME 91 fl (80.0-100.0); MEAN CORPUSCULAR HEMOGLOBIN 30 pg (27.0-31.0); MEAN CORPUSCULAR HGB CONC 33 g/dl (33.0-37.0); MONO # 0.5 (0.1-0.6); MONO % 5.2 % (1.7-9.3); PLATELET COUNT 225 K/mm3 (130-400); RED BLOOD COUNT 3.89 M/mm3 (4.20-5.60); REDCELL DISTRIBUTION WIDTH-CV 13.6 % (11.5-14.5)
[2021-01-19 13:26] LABS: HEMATOCRIT 35.5 % (42.0-52.0)
[2021-01-19 13:36] LABS: ALANINE AMINOTRANSFERASE 16 U/L (4-49); ALBUMIN 3.7 gm/dL (3.5-5.0); ALKALINE PHOSPHATASE 72 U/L (50-136); ANION GAP 6 mmol/L (7-16); AST,SGOT 40 U/L (15-37); BILIRUBIN,TOTAL 0.7 mg/dL (0.0-1.0); BLOOD UREA NITROGEN 25 mg/dL (9-20); CALCIUM 9.5 mg/dL (8.4-10.2); CARBON DIOXIDE 25 mmol/L (22-30); CHLORIDE 110 mmol/L (98-107); CREATININE, serum 1.06 (0.66-1.25); GLUCOSE 104 mg/dL (74-106); SODIUM 141 mmol/L (137-145)
[2021-01-19 13:37] LABS: COLLECTION METHOD CLEAN CATCH
[2021-01-19 13:43] LABS: MUCOUS Present /lpf; PH 5 (5-8); SQUAMOUS EPITHELIAL 0-2 /hpf; URINE APPEARANCE Clear; URINE BACTERIA None Seen /hpf; URINE BILIRUBIN Negative (NEGATIVE); URINE BLOOD Negative (NEGATIVE); URINE COLOR Yellow; URINE GLUCOSE Negative (NEGATIVE); URINE KETONE Trace (NEGATIVE); URINE LEUKOCYTE ESTERASE Negative (NEGATIVE); URINE NITRATE Negative (NEGATIVE); URINE PROTEIN(semi-quant) Negative (NEGATIVE); URINE RBC 0-2 /hpf; URINE UROBILINOGEN >=4.0 mg/dL (NEGATIVE)
[2021-01-19 13:49] LABS: TROPONIN-I < 0.012 ng/mL (0.000-0.035)
[2021-01-19 14:05] LABS: TRICYCLIC ANTIDEPRESS URINE POSITIVE
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
[2021-01-19 18:25] VITALS: BP 131/85; PULSE 81
== END 2021-01-19 18:25 | disposition home or self-care (01) ==
LOC: COL.ER 12:51
PROVIDERS: Family Medicine
DX: G93.40 Encephalopathy, unspecified (principal); F15.10 Other stimulant abuse, uncomplicated; J45.909 Unspecified asthma, uncomplicated; F03.90 Unspecified dementia, unspecified severity, without behavioral disturbance, psychotic disturbance, mood disturbance, and anxiety; E11.9 Type 2 diabetes mellitus without complications; F17.210 Nicotine dependence, cigarettes, uncomplicated; Z79.84 Long term (current) use of oral hypoglycemic drugs
CPT/HCPCS: J7030

== ENCOUNTER 2021-04-12 17:32 | Emergency (ER) | payer MEDICARE ==
[~2021-04-12] VITALS: Ht 200.7 cm; Wt 99.1 kg
[2021-04-12 17:36] VITALS: TEMP 98
[2021-04-12 18:01] LABS: BASO % 0.4 % (0.0-2.0); EOS # 0.4 (0.0-0.7); EOS % 4.9 % (0-4.0); HEMOGLOBIN 10.5 g/dl (13.5-18.0); LYMPH # 1.2 (1.2-3.4); LYMPH % 16.8 % (20.0-51.0); MEAN CELL VOLUME 93 fl (80.0-100.0); MEAN CORPUSCULAR HEMOGLOBIN 30 pg (27.0-31.0); MEAN CORPUSCULAR HGB CONC 33 g/dl (33.0-37.0); MEAN PLATELET VOLUME 9.2 fl (7.4-10.4); MONO # 0.5 (0.1-0.6); MONO % 6.6 % (1.7-9.3); PLATELET COUNT 219 K/mm3 (130-400); RED BLOOD COUNT 3.45 M/mm3 (4.20-5.60); REDCELL DISTRIBUTION WIDTH-CV 14.2 % (11.5-14.5)
[2021-04-12 18:23] LABS: ALANINE AMINOTRANSFERASE 13 U/L (0-55); ALBUMIN 3.6 gm/dL (3.4-4.8); ALKALINE PHOSPHATASE 77 U/L (0-750); ANION GAP 13 mmol/L; AST,SGOT 28 U/L (5-34); BLOOD UREA NITROGEN 27 mg/dL (8-26); CALCIUM 8.8 mg/dL (8.4-10.2); CARBON DIOXIDE 19 mEq/L (23-31); CHLORIDE 108 mmol/L (98-107); CREATININE, serum 1.45 mg/dL (0.72-1.25); GLUCOSE 76 mg/dL (70-99); POTASSIUM 4.1 mmol/L (3.5-4.5); SODIUM 140 mmol/L (136-145); TOTAL PROTEIN 6.8 gm/dL (6.2-8.1)
[2021-04-12 18:27] LABS: ALCOHOL(ethanol),MEDICAL < 10 mg/dL (0-10)
[2021-04-12 18:29] LABS: TROPONIN-I 0.011 ng/mL (0.00-0.033)
[2021-04-12 19:41] LABS: COLLECTION METHOD CLEAN CATCH
[2021-04-12 19:47] LABS: MUCOUS Present /lpf; PH 5 (5-8); URINE APPEARANCE Hazy; URINE BACTERIA None Seen /hpf; URINE BILIRUBIN Negative (NEGATIVE); URINE BLOOD Negative (NEGATIVE); URINE COLOR Amber; URINE GLUCOSE Negative (NEGATIVE); URINE KETONE 1+ (NEGATIVE); URINE LEUKOCYTE ESTERASE Negative (NEGATIVE); URINE NITRATE Negative (NEGATIVE); URINE PROTEIN(semi-quant) Negative (NEGATIVE); URINE RBC 0-2 /hpf; URINE UROBILINOGEN >=4.0 mg/dL (NEGATIVE)
[2021-04-12 19:55] LABS: TRICYCLIC ANTIDEPRESS URINE POSITIVE
[2021-04-13 04:15] VITALS: BP 111/83; PULSE 80
== END 2021-04-13 05:22 | disposition home or self-care (01) ==
LOC: COL.ER 17:32
PROVIDERS: Emergency Medicine
DX: F15.129 Other stimulant abuse with intoxication, unspecified (principal); D64.9 Anemia, unspecified; E16.2 Hypoglycemia, unspecified
CPT/HCPCS: J1885; J7042

== ENCOUNTER 2021-05-17 19:49 | Emergency (ER) | payer MEDICARE ==
[~2021-05-17] VITALS: Ht 200.7 cm; Wt 113.6 kg
[2021-05-17 19:51] VITALS: TEMP 98
[2021-05-17 20:38] LABS: BASO % 0.5 % (0.0-2.0); EOS # 0.8 K/mm3 (0.0-0.7); GRAN # 4.9 K/mm3 (1.4-6.5); HEMATOCRIT 37.8 % (42.0-52.0); HEMOGLOBIN 12.5 g/dl (13.5-18.0); LYMPH # 2.2 K/mm3 (1.2-3.4); LYMPH % 26.1 % (20.0-51.0); MEAN CELL VOLUME 91 fl (80.0-100.0); MEAN CORPUSCULAR HEMOGLOBIN 30 pg (27.0-31.0); MEAN CORPUSCULAR HGB CONC 33 g/dl (33.0-37.0); MEAN PLATELET VOLUME 8.9 fl (7.4-10.4); MONO # 0.5 K/mm3 (0.1-0.6); PLATELET COUNT 280 K/mm3 (130-400); RED BLOOD COUNT 4.17 M/mm3 (4.20-5.60); REDCELL DISTRIBUTION WIDTH-CV 13.7 % (11.5-14.5)
[2021-05-17 20:53] LABS: ALBUMIN 3.3 gm/dL (3.4-4.8); BILIRUBIN,TOTAL 0.3 mg/dL (0.2-1.2); C-REACTIVE PROTEIN 3.83 mg/dL (0.00-0.50); CALCIUM 8.9 mg/dL (8.4-10.2); CREATININE, serum 0.95 mg/dL (0.72-1.25); POTASSIUM 3.8 mmol/L (3.5-4.5); TOTAL PROTEIN 6.1 gm/dL (6.2-8.1)
[2021-05-17] MEDS ORDERED: BACTRIM DS 8001 TAB PO (22:14)
[2021-05-18 00:03] VITALS: BP 120/84; PULSE 74
== END 2021-05-18 00:03 | disposition home or self-care (01) ==
LOC: COL.ER 19:49
PROVIDERS: Family Medicine
DX: L03.116 Cellulitis of left lower limb (principal); L03.115 Cellulitis of right lower limb; F15.129 Other stimulant abuse with intoxication, unspecified; E11.40 Type 2 diabetes mellitus with diabetic neuropathy, unspecified
CPT/HCPCS: J7120